=== PATIENT | female | born 1960 | race Caucasian/White ===

== ENCOUNTER 2019-01-17 06:11 | Inpatient (IN) | payer BC ==
[2019-01-12 08:49] LABS: URINE BILIRUBIN NEGATIVE (Negative); URINE BLOOD NEGATIVE (Negative); URINE CLARITY SL CLOUDY; URINE COLOR YELLOW; URINE GLUCOSE-RANDOM* NEGATIVE (Negative); URINE KETONES NEGATIVE (Negative); URINE NITRITE-REFLEX NEGATIVE (Negative); URINE PROTEIN (DIPSTICK) NEGATIVE (Negative); URINE UROBILINOGEN 0.2 E.U./dl (0.2-1.0)
[2019-01-12 08:55] LABS: URINE LEUKOCYTES-REFLEX 1+ (Negative)
[2019-01-12 08:57] LABS: ALBUMIN 3.5 g/dL (3.4-5.0); CALCIUM 9.5 mg/dL (8.5-10.1); CREATININE 0.9 mg/dL (0.6-1.0); POTASSIUM 4.3 mmol/L (3.5-5.1)
[2019-01-12 08:59] LABS: PROTIME 10.4 Seconds (9.3-11.4)
[2019-01-12 09:11] LABS: BACTERIA-REFLEX 1-9 Few /HPF (None Seen); CASTS None Seen /LPF (None Seen); CRYSTALS None Seen /LPF (None Seen); SQUAMOUS 4-10 Moderate /LPF (0-3); URINE RBC 0-2 Rare /HPF (0-2); URINE WBC-REFLEX 0-5 Rare /HPF (0-5)
[2019-01-12 09:15] LABS: HEMATOCRIT 35.7 % (37.0-47.0); HEMOGLOBIN 11.6 gm/dL (12.0-15.0); MCH 30.4 pg (26.0-34.0); MCHC 32.6 g/dL (28.0-37.0); MCV 93.2 fL (80.0-100.0); RBC 3.83 mil/uL (4.20-5.00); RDW 13.7 % (10.5-14.5); WBC 7.8 thou/uL (4.0-11.0)
[2019-01-13 00:07] LABS: GLYCOHEMOGLOBIN (HGB A1C) 6.3 % (4.8-5.6)
--- NOTE | 2019-01-13 12:50 | EKG ---
[address] [address] ELECTROCARDIOGRAM REPORT Name: DARIUSZ RODRIGUEZ Room #: PRE IN .R.#: [id number] Admission: Attend Phys: Fabian Nicole MD Discharge: Date of : 62 Report #: [id number] THIS REPORT FOR: //name// [facility] Test Date: 2019-01-12 Test Time: 08:48:07 Pat Name: DARIUSZ RODRIGUEZ Department: Room: Gender: F Primer Supervisor: PENNY DIMAS : 1960 Requested By: Fabian Nicole Order Number: [id number] MD: Edward Moon Measurements Intervals [place] Rate: 80 P: 11 PA: 171 QRS: 16 QRSD: 84 T: 49 QT: 361 QTc: 417 Interpretive Statements Sinus rhythm No previous ECG available for comparison Electronically Signed On 01-13-2019 12:50:26 CDT by Edward Moon [email or web address] <ELECTRONICALLY SIGNED> By: Edward Moon MD 01/13/19 1250 0848 0848 Edward Moon MD /EPI
[~2019-01-17] VITALS: Ht 165.1 cm; Wt 83.9 kg
[~2019-01-17 06:11] MED LIST: LANTUS SOL100 UNIT/1 SUBQ; LIPITOR80 MG PO; LISINOPRIL5 MG PO; METFORMIN HCL500 MG PO; NEURONTIN600 MG PO; SYNTHROID112 MC1 PO; TRULICITY1.5 MG/0.5 SUBQ
[2019-01-17 07:30] VITALS: BP 141/71
[2019-01-17 12:56] VITALS: BP 138/63
--- NOTE | 2019-01-17 12:56 | NUR ---
PATIENT ARRIVED ON UNIT ROOM 438 FROM POST -OP PT ALERT XS 4 V S 97.9 17 102 138/63 O2 SAT = 99% RA. ASSISTED TO BSC PATIENT URINATED. MILD PAIN AT THIS TIME. HAS PICCO DRESSING IN PLACE POLAR PACK.AND SCD'S IN PLACE.
[2019-01-17 13:06] VITALS: BP 138/58
[2019-01-17 17:51] VITALS: BP 125/64
--- NOTE | 2019-01-17 19:59 | O ---
[facility] [place] [address] OPERATIVE REPORT Name: DARIUSZ RODRIGUEZ Room #: 438-P ADM IN M.R.#: [id number] Admission: 01/17/19 Attend Phys: Fabian Nicole MD Discharge: Date of : 62 Report #: [id number] THIS REPORT FOR: //name// CC: Rebel Nicole DATE OF SERVICE: 01/17/2019 PREOPERATIVE DIAGNOSIS: Aseptic loosening, right total knee arthroplasty. POSTOPERATIVE DIAGNOSIS: Aseptic loosening, right total knee arthroplasty. PROCEDURE: Revision of right total knee arthroplasty, all components. SURGEON: Fabian Nicole MD DRAIN TILE MACHINE OPERATOR: Remedios Jennings PA-C INDICATIONS FOR DRAIN TILE MACHINE OPERATOR: Throughout the case, extensive retraction and manipulation of the knee was required. This was afforded to me by my engineer first assistant. ANESTHESIA: LMA with an adductor canal block. IMPLANTS: Abreu and Nephew size 4 Legion Oxinium revision femoral component with a 4 mm offset seed laboratory assistant and an 11 x 160 stem, a size 3 Legion revision tibial baseplate with a 2 mm offset seed laboratory assistant and a 10 x 160 stem, a 13 constrained polyethylene insert and a size 35 patella. TOURNIQUET TIME: 85 minutes. ESTIMATED BLOOD LOSS: 50 mL. COMPLICATIONS: None. SPECIMENS: None. CONDITION UPON LEAVING THE OPERATING ROOM: Stable. INDICATIONS FOR PROCEDURE: The patient is a 58-year-old female who previously has had a right total knee arthroplasty. She has had pain in her knee ever since her surgery. She did have an Attune implant and bone scan was performed showing to have evidence of loosening of her tibial component. After discussion with her, she elected for revision total knee arthroplasty. DESCRIPTION OF PROCEDURE: Risks, benefits, alternatives, complications were discussed in detail with the patient including but not limited to risk of [facility] [address] [place] [address] OPERATIVE REPORT Name: JENNIFERDARIUSZ R Room #: 438-P ADM IN M.R.#: [id number] Admission: 01/17/19 Attend Phys: Fabian Nicole MD Discharge: Date of : 62 Report #: [id number] anesthesia, risk of damage to nerves, arteries, blood vessels, risk for infection, bleeding, risk for continued knee pain, need for reoperation. Informed consent was obtained from the patient. Right knee was appropriately marked in the preoperative holding area. IV Ancef was given for preoperative antibiotics. She was brought to the operating room and placed in supine position on operating room table. LMA anesthesia was induced without complication. Tourniquet was placed on the right thigh. Right lower extremity was prepped and draped in normal sterile fashion. Timeout was performed properly identifying the patient and procedure as well as the instrumentation. All in the operating room were in agreement. Right lower extremity was exsanguinated, tourniquet was inflated. Tourniquet time was 85 minutes. Previous scar was used and the scar was excised with a #10 blade. Dissection was taken down sharply to the fascia, deep flaps were developed medially and laterally. Fresh 10 blade was used to make a medial parapatellar arthrotomy and the knee was inspected. Cultures of the synovial fluid were taken and sent. Synovial specimens were excised and sent for intraoperative frozen and showed no inflammatory cells per high power field. The polyethylene liner was removed and the femoral component was removed with a combination of flexible and curved osteotomes. Attention was then turned to the tibia. Tibial component came out easily with one hit of an osteotome and there was obvious loosening of the tibial component as no cement was bonded to the component itself. After this, cement was removed from the tibia. The tibial and femoral canals were then reamed up with a reamer up to a size 10 for the tibia. A tibial cleanup cut guide was pinned in place, the tibial cleanup cut was made. Tibia was then sized, found to fit best with the offset seed laboratory assistant with a 2 mm offset ____ in the 2:30 o'clock position. A trial component was built on the back table and performed. Attention was then turned to the femur. A cleanup cut was made using the cleanout cut guide. The femur was sized, found to be a size 4. This fit best with a 4 mm offset seed laboratory assistant in the 6:30 o'clock position. Anterior, posterior and chamfer cuts were made on the femur. After this, the femoral trial component was built on the back table and placed. The box cut was made. This was then trialled with a size 9 polyethylene liner up to a size 13 highly constrained, at which point, there was good stability and both medially and laterally. After this, the previous patellar component was removed with an oscillating saw. A new size 35 patellar trial button was placed. Knee was taken through range of motion, found to be stable, found to have good patellar tracking. Trial components were then removed. Bony ends were thoroughly irrigated with normal saline. A final size 3 revision tibia with a 2 mm offset seed laboratory assistant and a 10 x 160 stem was cemented on the tibia. The femoral component was a 5 Oxinium Legion posterior stabilized revision component with a 4 mm offset seed laboratory assistant and an 11 x 160 stem and a 35 patella were cemented in place using standard cementation techniques. While the cement cured, a periarticular injection consisting of morphine, ropivacaine, epinephrine and Toradol was placed around the knee joint capsule. After the cement cured, the tourniquet was deflated. Hemostasis was obtained with Bovie cautery. Final size 13 highly constrained polyethylene was placed. A gram of vancomycin was placed deep in [facility] [address] [place] [address] OPERATIVE REPORT Name: DARIUSZ RODRIGUEZ Room #: 438-P ADM IN M.R.#: [id number] Admission: 01/17/19 Attend Phys: Fabian Nicole MD Discharge: Date of : 62 Report #: [id number] the joint. The fascia was closed with 0 Vicryl, skin was closed with 2-0 Vicryl, skin staple and a MANUELA dressing was applied. The patient tolerated this procedure well and went to the recovery room under care of anesthesia postoperatively. <ELECTRONICALLY SIGNED> By: Fabian Nicole MD 01/17/19 1959 1406 1438 Fabian Nicole MD /nt
[2019-01-17 21:07] LABS: HEMATOCRIT 32.9 % (37.0-47.0); HEMOGLOBIN 10.8 gm/dL (12.0-15.0); MCH 30.7 pg (26.0-34.0); MCHC 32.8 g/dL (28.0-37.0); MCV 93.6 fL (80.0-100.0); RBC 3.51 mil/uL (4.20-5.00); RDW 13.7 % (10.5-14.5); WBC 10.6 thou/uL (4.0-11.0)
--- NOTE | 2019-01-17 21:12 | NUR ---
DR HENRY HERE TO SEE PATIENT AND START HOME MEDS. ASKED THIS NURSE TO CALL DR BALLARD FOR LOVENOX OR PROPHYLAXIS. AT 1900 [employer] VIANEY DILL CALLED FOR [facility] STATED THAT IN DR WARE NOTES HE USES ASPRIN 81 MG BID FOR PROPHYLAXIS AND THAT IT WAS ORDERED. PATIENT WAS EXPLAINED THIS.
[2019-01-17 21:22] LABS: APTT 24.7 Seconds (24.5-32.8); PROTIME 10.9 Seconds (9.3-11.4)
[2019-01-17 21:24] LABS: ALBUMIN 3.3 g/dL (3.4-5.0); CALCIUM 8.6 mg/dL (8.5-10.1); CREATININE 1.2 mg/dL (0.6-1.0); MAGNESIUM 1.4 mg/dL (1.8-2.4); TOTAL BILIRUBIN 0.3 mg/dL (<0.1-1.0); TOTAL PROTEIN 6.6 g/dL (6.4-8.2)
[2019-01-17 21:29] LABS: CHOLESTEROL 157 mg/dL (<200); HDL CHOLESTEROL 70 mg/dL (>40); LDL CHOLESTEROL 82 mg/dL (<100); TC:HDL 2.2 Ratio (Not establshd); TRIGLYCERIDE 28 mg/dL (<150); VLDL 6 mg/dL (<40)
[2019-01-17 22:00] VITALS: BP 142/75
[2019-01-18] VITALS: BP 120/60
[2019-01-18 01:00] VITALS: BP 120/60; BP 120/64
--- NOTE | 2019-01-18 04:47 | NUR ---
PATIENT ALERT AND ORIENTED X4. UP WITH ASSIST TO BSC. DRESSING ON R KNEE D/I. POLAR ICE STILL APPLIED. ACCUCHECK WAS 245. C/O PAIN AND NAUSEA. MED GIVEN FOR BOTH. SLEPT OFF AND ON DURING NIGHT.
[2019-01-18 05:39] LABS: HEMATOCRIT 31.7 % (37.0-47.0); HEMOGLOBIN 10.1 gm/dL (12.0-15.0); MCHC 31.7 g/dL (28.0-37.0); MCV 94.5 fL (80.0-100.0); RBC 3.36 mil/uL (4.20-5.00); RDW 13.9 % (10.5-14.5); WBC 11.9 thou/uL (4.0-11.0)
[2019-01-18 05:46] LABS: CALCIUM 8.4 mg/dL (8.5-10.1); CREATININE 1.1 mg/dL (0.6-1.0); MAGNESIUM 1.5 mg/dL (1.8-2.4)
[2019-01-18 07:18] VITALS: BP 121/60
--- NOTE | 2019-01-18 15:35 | NUR ---
PT ADMITTED RELATED TO RT TOTAL KNEE REVISION. CM REVIEWED CAHRT AND SPOKE WITH CARE TEAM. CM MET WITH PT AT BEDSIDE THIS DAY. PT IS A&O X4. CM ROLE INTRODUCED. PT INDICATED SHE LIVES IN A HOUSE WITH HER SPOUSE AND DTR WITH 7 STEPS TO ENTER AND 20 STEPS INSIDE. PT INDICATED SHE HAD BEEN INDEPENDENT WITH GAIT AND ADLS CLIENT DIRECTOR AND THAT SHE WILL NEED A FWW ISSUSED UPON DC. CM NOTIFIED PP LIAISON. PT INIDCATED SHE HAD A SHOWER STOOL, GRAB BAR, RAISED TOILET SEAT, AND BARS ON TOILET. PT INDICATED SHE HAS OP PT APPOINTMENT SECHEDULED FOR THURSDAY AT [facility] IN [place]. PT ANTICIAPTES DISCHARGING HOME TOMORROW. CM TO FOLLOW INDICATED WITH DC PLANNING.
--- NOTE | 2019-01-18 17:06 | PATH ---
[facility] [place] [address] PATHOLOGY RPT PROCEDURE Name: MAHNAZ RODRIGUEZ Room #: 438-P ADM IN M.R.#: [id number] Admission: 01/17/19 Date of : 62 Discharge: Report #: [id number] Path Case #: [id number] LCA Accession Number: [id number] . 01 Material submitted: . knee - RIGHT KNEE TISSUE. Modifiers: right . 01 Clinical history: . Right knee OA, presence of artificial knee joint . 02 Frozen section diagnosis: . FROZEN SECTION DIAGNOSIS: "Right knee tissue": - No significant acute inflammation; less than 3-5 pmn/hps focally. . The case is discussed with Dr. Fabian Nicole in the operating room and a written report is placed in the patient's chart. (CLW:pit; 01/17/2019) . FROZEN SECTION GROSS DESCRIPTION: The specimen is received fresh from the OR labeled "Mahnaz Rodriguez and right knee tissue". It consists of three irregularly shaped taylor-white fibrous and fatty tissue fragments measuring 3.0 x 2.6 x 0.8 cm in aggregate. Sales Support Rep tissue is submitted for one frozen section as FSA1. The frozen section is then submitted as A1. (CLW:pit; 01/17/2019) . . Frozen section performed at [facility], [address] [facility] , [place] [address]. IAIN/NITZA . 02 Diagnosis: Synovium, right knee, total knee revision along with biopsy: - Reactive/reparative changes associated with chronic inflammation as well as macrophages. - Reactive synovial hyperplasia. - Negative for acute inflammation. (IUV:renaldo; 01/18/2019) QMS 01/18/2019 1512 Local . 02 Electronically signed: . Deborah Cedillo MD, Pathologist NPI- [id number] . 01 Gross description: . PLEASE SEE FROZEN SECTION FOR GROSS DESCRIPTION [address] [address] PATHOLOGY RPT PROCEDURE Name: MAHNAZ RODRIGUEZ Jesse Room #: 438-P [facility] IN M.R.#: [id number] Admission: 01/17/19 Date of : 62 Discharge: Report #: [id number] Path Case #: [id number] /QTP 01/17/2019 1250 Local . 02 Microscopic: . . . . 02 Pathologist provided ICD-10: M67.961 . 02 CPT . 164425, [id number] Specimen Comment: A courtesy copy of this report has been sent to Specimen Comment: [phone], . Specimen Comment: Report sent to / DR ARMSTRONG Performed at: [address], [place] [id number] MD Mike Sultana MD Phone: [phone] Performed at: [address] [id number] MD Deborah Cedillo MD Phone: [phone]
--- NOTE | 2019-01-18 18:17 | NUR ---
Assumed patient care at 0715. Patient is alert and oriented x's 4, up with assist x's 1. Picco dressing on right knee is clean, dry and intact. It is covered with Polar Ice wrap, followed by Raymond Bandage. IV site in left AC became red and inflamed. New IV put in right forearm per IV Team; it continues to be patent. Patient has requested et recieved pain medication several x's today with minimal relief. New order received for Hydromorphone IV push and 1-2 Oxycodone. Vital signs have been stable, as well as blood sugars. Appetite is good, drinking plenty of po fluids. Will continue to monitor.
[2019-01-18 19:10] VITALS: BP 118/56
--- NOTE | 2019-01-19 03:48 | NUR ---
ASSUMED PT CARE AT APPROXIMATELY 2220. PATIENT UP TO BATHROOM DURING CARE. PATIENT IS UP WITH ASSIST x1 WITH A WALKER AND GB. PATIENT DID FAIR. PAIN ON LEFT KNEE WAS EXACERBATED BY MOVEMENT. PATIENT VOICED CONCERN ABOUT WANTING TO SLEEP TONIGHT WITH MINIMAL INTERRUPTIONS. PATIENT CONTINUES TO HAVE SLIGHT REDNESS AND SWELLING AROUND IV SITE. WARM COMPRESS WAS OFFERED AND HELPED PER PATIENT. ALL OTHER FINDINGS WNL. FALL PRECAUTIONS IN PLACE. WILL CONTINUE TO MONITOR PATIENT.
[2019-01-19 03:59] VITALS: BP 102/52
[2019-01-19 05:11] LABS: HEMATOCRIT 32.1 % (37.0-47.0); HEMOGLOBIN 10.4 gm/dL (12.0-15.0); MCH 30.5 pg (26.0-34.0); MCHC 32.3 g/dL (28.0-37.0); MCV 94.4 fL (80.0-100.0); RBC 3.41 mil/uL (4.20-5.00); RDW 14.3 % (10.5-14.5); WBC 9.2 thou/uL (4.0-11.0)
[2019-01-19 05:28] LABS: ALBUMIN 3.2 g/dL (3.4-5.0); DIRECT BILIRUBIN < 0.1 mg/dL (<0.1-0.3); SGOT 41 U/L (15-37); SGPT 50 U/L (30-65); TOTAL BILIRUBIN 0.2 mg/dL (<0.1-1.0); TOTAL PROTEIN 6.3 g/dL (6.4-8.2)
[2019-01-19 06:11] LABS: GLYCOHEMOGLOBIN (HGB A1C) 6.4 % (4.8-5.6)
[2019-01-19 07:45] VITALS: BP 123/73
[2019-01-19] MEDS ORDERED: PERCOCET 10-321 EACH PO (10:53)
[2019-01-19] MEDS ORDERED: ASPIR 8181 MG PO (10:53)
[2019-01-19] MEDS ORDERED: NEURONTIN 300300 M1 PO (15:31)
[2019-01-19 15:49] VITALS: BP 121/57
[2019-01-19 17:07] LABS: HAV IgM AB (ANTI-HAV IgM) Negative (Negative); HEPATITIS B SURFACE AG Negative (Negative); HEPATITIS C VIRUS AB 0.1 (0.0-0.9)
--- NOTE | 2019-01-19 18:48 | NUR ---
Assumed patient care at 0715. Vital signs have been stable. Pain has been uncontrolled, rated the lowest to be at a "level six." Patient is ambulating to and from the restroom with assist x's 1. Dressing to right knee continues to be clean, dry et intact. has been at bedside for part of this shift. Patient was going to be discharged today but, it was decided that tomorrow would be better due to uncontrolled pain. Patient's appetite and fluid intake has been adequate. Will report to the oncoming nurse.
[2019-01-19 20:11] VITALS: BP 113/67
[2019-01-20 05:28] LABS: HEMATOCRIT 33.7 % (37.0-47.0); HEMOGLOBIN 10.9 gm/dL (12.0-15.0); MCH 30.5 pg (26.0-34.0); MCHC 32.2 g/dL (28.0-37.0); MCV 94.7 fL (80.0-100.0); RBC 3.56 mil/uL (4.20-5.00); RDW 14.2 % (10.5-14.5); WBC 7.1 thou/uL (4.0-11.0)
--- NOTE | 2019-01-20 05:49 | NUR ---
ASSUMED Pt CARE CARE AT APPROX. 1999. PATIENT WAS A&OX4 BUT DROWSY. SCHEDULED ANTIBIOTIC NOT GIVEN DUE TO Pt NOT HAVING AN IV. R KNEE DRESSING INTACT. POLAR PACK WAS REFILLED. ALL OTHER FINDINGS WERE WNL. GOOD CIRCULATION ON RIGHT LOWER EXTREMITY. NEW IV STARTED BY RN, RENETTA. ANTIBIOTICS RESUMED. Pt APPEARS TO BE DOING BETTER AMBULATING TO BATHROOM. Pt VOICES PAIN KETTY. DURING ACTIVITY. PAIN MEDICATION WAS GIVEN WITH NIGHT MEDS. PATIENT APPEARS TO BE COMFORTABLE AND STATES SHE "WANTS TO REST TONIGHT". FALL PRECAUTIONS IN PLACE. WILL CONTINUE TO MONITOR.
[2019-01-20 07:50] VITALS: BP 147/72
--- NOTE | 2019-01-20 10:51 | NUR ---
PT ASSESSED AT START OF SHIFT. PT NOTED TO BE VERY CONFUSED AND NOT ABLE TO GIVE ACCURATE ACCOUNTS OF HOME SITUATION W/ FAMILY AND ASSISTANCE FOR DISCHARGE. AMBULATING W/ WALKER TO THE BR W/ CONTINOUS COACHING AND DID OK-SOME UNSTEADINESS. AFTER PT RETURNED TO THE CHAIR SHE VOMITED LARGE AMT OF UNDIGESTED FOOD. MOTHER CAME AND INFORMED ME THAT PT DOES NOT TOLERATE NARCOTICS AND BECOMES CONFUSED AND SICK UNABLE TO KEEP FOOD DOWN. DR. NARANJO IN AND WAS ABLE TO TALK TO THE AND MOTHER AND STORY WAS CORROBORATED. NOTIFIED DR. BALLARD AT THIS TIME TO UPDATE HIM ON PT CONDITION. HE WILL SEE PT ON ROUNDS.
--- NOTE | 2019-01-20 16:10 | NUR ---
CARE TEAM INDICATED THAT PT HAD ADVERSE REACTION TO PAIN MEDS AND THAT SHE IS PROGRESSING TOWARD GOAL OD DC HOME WITH FWW AND OP PT. CM TO FOLLOW INDICATED WITH DC PLANNING.
--- NOTE | 2019-01-20 18:30 | NUR ---
PT SEEN BY DR. BALLARD THIS AFTERNOON. NARCOTIC MEDS DC'D AND TORODOL AND IBUPROFEN ORDERED PT NOT ABLE TO TOLERATE NARCOTICS. TORODOL GIVEN AND WORKED VERY WELL FOR PAIN RELIEF. PT WALKED IN THE HALLS W/ THERAPIST AND DID WELL. CONFUSION MUCH BETTER AND PT STATING SHE IS FEELING MORE LIKE HERSELF BUT STILL NOT BACK TO BASELINE. NO FURTHER VOMITING BUT PT EATING VERY LIGHT. PLANNING ON GOING HOME TOMORROW IN TIME TO GO FOR 1400 THERAPY.
[2019-01-20 19:22] VITALS: BP 130/65
[2019-01-21 04:21] VITALS: BP 109/57
[2019-01-21 06:32] LABS: ALBUMIN 2.7 g/dL (3.4-5.0); DIRECT BILIRUBIN 0.5 mg/dL (<0.1-0.3); TOTAL BILIRUBIN 0.8 mg/dL (<0.1-1.0); TOTAL PROTEIN 5.3 g/dL (6.4-8.2)
--- NOTE | 2019-01-21 07:35 | NUR ---
PATIENT ALERT AND ORIENTED X4. C/O PAIN. SCHEDULED MED GIVEN. DRESSING ON R KNEE D/I. HAS POLAR ICE AND TEDS ON R KNEE. HAS SCD'S ON L. ACCUCHECK WAS 125, RECEIVED 4 UNITS LISPRO WELL LANTUS. UP WITH SBA. SLEPT MOST OF NIGHT.
[2019-01-21] MEDS ORDERED: ULTRAM50 MG PO (08:05)
[2019-01-21] MEDS ORDERED: ACETAMINOPHEN325 M1 PO (08:05)
[2019-01-21] MEDS ORDERED: IBUPROFEN 800800 M1 PO (08:05)
[2019-01-21] MEDS ORDERED: ONDANSETRON HCL4 M1 PO (08:05)
[2019-01-21 08:35] VITALS: BP 127/69
--- NOTE | 2019-01-21 10:54 | NUR ---
Assumed patient care at 0715. Patient's vital signs are stable, blood sugar was 81 at 0815. Patient stated that her pain level in right knee was "level seven", Torodal offered. Patient declined the Torodal, wanted Tylenol instead. Tylenol 650mg po given with am medications. Patient has SCD on left lower extremity, molly hose on both extremities with yellow socks on bilateral feet. Picco dressing is clean, dry et intact. Polar pac covers Picco dressing, followed by Raymond Bandage. No skin irritaion noted from any of these skin treatments. Patient worked with PT today; she has been cleared for Discharge. Patient requested to be Discharged after lunch. Will continue to monitor.
[2019-01-21 11:51] VITALS: BP 127/69
[2019-01-21 14:11] LABS: MITOCHONDRIAL ANTIBODY <20.0 Units (0.0-20.0); SMOOTH MUSCLE ANTIBODY 3 Units (0-19)
--- NOTE | 2019-01-21 14:12 | NUR ---
Patient discharged at 1410 with and liason in a wheelchair. She verbalized an understanding of all discharge instructions before signing paperwork.
[2019-01-21 14:31] LABS: % SATURATION 10 % (20-39); IRON 25 ug/dL (50-170); TIBC 253 ug/dL (250-450)
--- NOTE | 2019-01-21 14:40 | HC ---
[facility] [place] [address] CONSULTATION Name: JENNIFERDARIUSZ Jesse Room #: 438-P [facility] IN M.R.#: [id number] Admission: 01/17/19 Attend Phys: Fabian Nicole MD Discharge: 01/21/19 Date of : 62 Report #: [id number] THIS REPORT FOR: //name// CC: Rebel Merino GASTROINTESTINAL CONSULTATION REASON FOR CONSULTATION: The patient is a 58-year-old woman with abnormal liver function studies. HISTORY OF PRESENT ILLNESS: This 58-year-old woman has a long history of diabetes, which has been complicated by peripheral neuropathy. She states her blood sugar control has not been ideal and most recently her A1c was down to 6.9, which is the lowest it has been in some time. She had a right knee meniscus tear in the past and had surgery for the meniscus. Subsequently, she required a total knee replacement. She required another surgery for release of adhesions associated with the knee replacement. However, she had another failure and on the 01/17 had a repeat total knee replacement on the right. As a part of evaluation, liver function studies were obtained. She was found to have a total bilirubin of 0.3 and AST of 161, ALT of 171 and alkaline phosphatase of 186, albumin of 3.3. Creatinine was 1.1. The patient reports she has never been aware of any previous liver problems. She has had no specific complaints such as change in the color of her eyes, urine or stools. She also has no complaints of fatigue. She has never had jaundice or hepatitis in the past to the best of her knowledge; she has never received vaccination for hepatitis A or B. She has never drunk much alcohol. She has never used any drugs or shared needles. She has no tattoos or body piercings. She has never donated blood. To the best of her knowledge, she has never had a blood transfusion. She notes there is no family history of liver disease. She sees Dr. Morel on a regular basis, but much of her blood work is done by her energy auditor and she has never been told her liver studies are abnormal. She is not aware of a diagnosis of fatty liver disease. PAST MEDICAL HISTORY: Diabetes, thyroid disease, psoriasis, degenerative joint disease. 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 She reports she has done well since that time, although she does have heartburn from time to time. She has had 2 knee surgeries and 2 total knee replacements on the right. She has had neck surgery twice for disk disease. She has also had a , shoulder surgery and surgery for a vein in her right hand. [address] [address] CONSULTATION Name: DARIUSZ RODRIGUEZ Room #: 438-P DIS IN M.R.#: [id number] Admission: 01/17/19 Attend Phys: Fabian Nicole MD Discharge: 01/21/19 Date of : 62 Report #: [id number] ALLERGIES: Include HYDROCODONE, IODINE, MORPHINE and SULFA. MEDICATIONS: Usual home medicines include atorvastatin, Trulicity, gabapentin, Lantus insulin, Synthroid, lisinopril, metformin. She also has been using ibuprofen 600 mg 2 to 3 times daily. FAMILY HISTORY: No family history of liver disease. SOCIAL HISTORY: . She does have a job outside the home; she works in [employer]. She smoked many years ago. She consumes alcohol on occasion. REVIEW OF SYSTEMS: GENERAL: No change in weight, fever or chills. CENTRAL NERVOUS SYSTEM: No focal weakness, numbness, loss of consciousness, seizures or strokes. ENT: No change in vision, hearing or sores in her mouth. PULMONARY: She has had pneumonias in the past. No history of tuberculosis. CARDIOVASCULAR: No chest pain, chest tightness or palpitations. GASTROINTESTINAL: Occasional reflux. No abdominal pain, no prior history of liver disease. GENITOURINARY: Without dysuria or pyuria. She has had kidney tract infection in the past. GYNECOLOGIC: No breast problems or vaginal discharge or bleeding. MUSCULOSKELETAL: Disk disease in her neck and knee replacement on the right. SKIN: Psoriasis. PSYCHIATRIC: No depression, anxiety or bipolar illness. ENDOCRINE: She has type 2 diabetes. She also had radioactive iodine after the of her daughter and now is on thyroid replacement. HEMATOLOGIC: No bleeding, bruising or malignancies. PHYSICAL EXAMINATION: GENERAL: The patient is a well-developed, well-nourished, overweight woman in no acute distress. VITAL SIGNS: Blood pressure 121/60, temperature 98, pulse of 86. HEENT: Anicteric. Pupils are equal and round. Oropharynx is clear. NECK: Supple. CHEST: Clear. HEART: Regular rate and rhythm, normal S1 and S2. ABDOMEN: Overweight. Normal bowel sounds, soft, nontender without hepatosplenomegaly or masses. RECTAL: Not done at this time. EXTREMITIES: Without cyanosis, clubbing or edema. NEUROLOGIC: Oriented to person, place and time. Moves all 4 extremities well. No asterixis. [facility] [address] [place] [address] CONSULTATION Name: DARIUSZ RODRIGUEZ Room #: 438-P DIS IN Astrid#: [id number] Admission: 01/17/19 Attend Phys: Fabian Nicole MD Discharge: 01/21/19 Date of : 62 Report #: [id number] SKIN: No spider nevi. LABORATORY DATA: LFTs as noted above. Additional labs include white count 11.9, hemoglobin 10.1 following surgery, platelet count 192,000. INR of 1. Electrolytes unremarkable. Creatinine 1.1, BUN of 18. Hepatitis A, B and C serologies are pending. IMAGING: On ultrasound of the abdomen, liver is unremarkable, they do not describe steatosis. Gallbladder has been removed; the patient did not tell me that. ASSESSMENT: 1. Elevated liver function studies, asymptomatic. 2. Diabetes type 2. 3. Peripheral neuropathy related to diabetes. 4. Degenerative joint disease. 5. Hypothyroidism. PLAN: 1. Followup on hepatitis serologies; those are pending. 2. Since she has diabetes, we will obtain a smooth muscle antibody regarding autoimmune hepatitis. She has mild elevation of alkaline phosphatase. We will obtain antimitochondrial antibody. 3. Will likely need long-term followup after discharge, given her etiology is not entirely clear. She has been on multiple medications; medications may be a factor. Anesthesia is not usually a problem with elevated liver function studies at this time. We will follow. <ELECTRONICALLY SIGNED> By: Alejandro He MD 01/21/19 1440 1734 1232 Alejandro He MD /nt
== END 2019-01-21 14:10 | disposition home or self-care (01) | DRG 467 ==
LOC: TBA 06:11 → PRE 06:11 → 4S 12:39 → PRE 16:16 → ENTRNSPT 01-21 13:49 → EDTRNSPTSTS 01-21 13:53 → 4S 01-21 14:10
PROVIDERS: Internal Medicine; Nurse Practitioner; Specialist; ADMIT Orthopaedic Surgery
PROC: 0SPT0JZ Removal of Synthetic Substitute from Right Knee Joint, Femoral Surface, Open Approach (ICD-10-PCS; principal; 2019-01-17)
PROC: 0SRT0J9 Replacement of Right Knee Joint, Femoral Surface with Synthetic Substitute, Cemented, Open Approach (ICD-10-PCS; principal; 2019-01-17)
PROC: 0SPC0JZ Removal of Synthetic Substitute from Right Knee Joint, Open Approach (ICD-10-PCS; principal; 2019-01-17)
PROC: 0SRC069 Replacement of Right Knee Joint with Oxidized Zirconium on Polyethylene Synthetic Substitute, Cemented, Open Approach (ICD-10-PCS; principal; 2019-01-17)
DX: T84.032A Mechanical loosening of internal right knee prosthetic joint, initial encounter (principal); E46 Unspecified protein-calorie malnutrition; Z96.651 Presence of right artificial knee joint; E11.42 Type 2 diabetes mellitus with diabetic polyneuropathy; E03.9 Hypothyroidism, unspecified; E78.5 Hyperlipidemia, unspecified; R23.3 Spontaneous ecchymoses; R74.0 Nonspecific elevation of levels of transaminase and lactic acid dehydrogenase [LDH]; L40.9 Psoriasis, unspecified; T40.605A Adverse effect of unspecified narcotics, initial encounter; Y83.8 Other surgical procedures as the cause of abnormal reaction of the patient, or of later complication, without mention of misadventure at the time of the procedure; Y92.89 Other specified places as the place of occurrence of the external cause; Z88.2 Allergy status to sulfonamides; Z88.6 Allergy status to analgesic agent; Z91.041 Radiographic dye allergy status; Z23 Encounter for immunization
CPT/HCPCS: 10102; 50010; 50101; 50415; 50954; 51130; 51225; 51320; 51412; 52001; 52282; 53000; 53078; 55389; 56528; 57095; 57103; 57110; 57180; 62110; 62900; 64042; 70005

== ENCOUNTER 2019-03-12 13:22 | Emergency (ER) | payer BC ==
[~2019-03-12] VITALS: Ht 162.6 cm; Wt 81.7 kg
[~2019-03-12 13:22] MED LIST changes: +ACETAMINOPHEN325 M1 PO; +ASPIR 8181 MG PO; +IBUPROFEN 800800 M1 PO; +NEURONTIN 300300 M1 PO; +ONDANSETRON HCL4 M1 PO; +PERCOCET 10-321 EACH PO; +ULTRAM50 MG PO
[2019-03-12] MEDS ORDERED: PERCOCET 5-3251 EACH PO (18:22)
[2019-03-12 18:23] VITALS: BP 159/64
== END 2019-03-12 18:35 | disposition home or self-care (01) ==
LOC: ER 13:22
DX: S82.51XA Displaced fracture of medial malleolus of right tibia, initial encounter for closed fracture (principal); S90.01XA Contusion of right ankle, initial encounter; M25.432 Effusion, left wrist; E11.9 Type 2 diabetes mellitus without complications; E78.5 Hyperlipidemia, unspecified; E03.9 Hypothyroidism, unspecified; Z87.891 Personal history of nicotine dependence; Z88.5 Allergy status to narcotic agent; Z88.2 Allergy status to sulfonamides; Z79.82 Long term (current) use of aspirin; Z79.899 Other long term (current) drug therapy; Z79.4 Long term (current) use of insulin; Z96.651 Presence of right artificial knee joint; Z90.49 Acquired absence of other specified parts of digestive tract; Z98.890 Other specified postprocedural states; W18.30XA Fall on same level, unspecified, initial encounter; Y93.89 Activity, other specified; Y92.89 Other specified places as the place of occurrence of the external cause; Y99.9 Unspecified external cause status

== ENCOUNTER 2019-03-13 08:11 | Emergency (ER) | payer BC ==
[~2019-03-13] VITALS: Ht 162.6 cm; Wt 81.7 kg
[~2019-03-13 08:11] MED LIST changes: +PERCOCET 5-3251 EACH PO
[2019-03-13 10:16] VITALS: BP 132/56
== END 2019-03-13 10:30 | disposition home or self-care (01) ==
LOC: ER 08:11
DX: S82.51XA Displaced fracture of medial malleolus of right tibia, initial encounter for closed fracture (principal); X58.XXXA Exposure to other specified factors, initial encounter; Y92.89 Other specified places as the place of occurrence of the external cause; Y93.89 Activity, other specified; Y99.8 Other external cause status